=== PATIENT | female | born 1980 | race African-American/Black ===

== ENCOUNTER 2018-02-25 22:53 | Emergency (ER) | payer OTHER ==
[2018-02-25 23:22] LABS: HCG URINE NEGATIVE (NEGATIVE)
[2018-02-25 23:25] LABS: APPEARANCE HAZY (CLEAR); BILIRUBIN NEGATIVE (NEGATIVE); COLOR YELLOW (YELLOW); GLUCOSE NEGATIVE (NEGATIVE); KETONE NEGATIVE (NEGATIVE); NITRITE NEGATIVE (NEGATIVE); PROTEIN NEGATIVE (NEGATIVE); UROBILINOGEN NORMAL (NORMAL)
[2018-02-25 23:26] LABS: BACTERIA MODERATE /hpf (NONE SEEN); EPITHELIAL CELLS 0-5 /hpf (0-5); RED CELLS - URINE NONE SEEN /hpf (0-5)
[2018-02-25 23:33] LABS: UDS - AMPHET NEGATIVE QUAL (NEGATIVE); UDS - BARB NEGATIVE QUAL (NEGATIVE); UDS - BENZO NEGATIVE QUAL (NEGATIVE); UDS - COCAINE NEGATIVE QUAL (NEGATIVE); UDS - OPIATE NEGATIVE QUAL (NEGATIVE); UDS - PCP NEGATIVE QUAL (NEGATIVE); UDS - THC POSITIVE QUAL (NEGATIVE)
[2018-02-25 23:45] LABS: HEMATOCRIT 31.7 % (36.0-48.0); HEMOGLOBIN 10.3 g/dL (12-16); LYMPHOCYTES 29.3 % (15-50); MCH 27.7 pg (26.0-34.0); MCHC 32.5 g/dL (31.0-37.0); MCV 85.2 fL (80.0-100.0); MEAN PLATELET VOLUME 10.8 fL (7.4-10.4); NEUTROPHILS 58.9 % (40-80); PLATELET COUNT 245 10x3/uL (130-400); RBC 3.72 10x6/uL (4.00-5.40); RDW 13.1 % (11.5-14.5); WBC 10.7 10x3/uL (4.8-10.8)
[2018-02-26 00:14] LABS: ACETAMINOPHEN 5.8 ug/mL (10.0-30.0); ALBUMIN 3.3 g/dL (3.4-5.0); ANION GAP 11.7 mmol/L (8-16); BILIRUBIN - TOTAL 0.15 mg/dL (0.2-1.3); CALCIUM 8.3 mg/dL (8.5-10.1); CARBON DIOXIDE 28.8 mmol/L (21.0-32.0); CREATININE - SERUM 0.9 mg/dL (0.6-1.3); POTASSIUM - SERUM 3.5 mmol/L (3.5-5.1)
== END 2018-02-26 02:15 | disposition short-term general hospital (02) ==
LOC: D.ER 22:53
PROVIDERS: Family Medicine
DX: R45.851 Suicidal ideations (principal)

== ENCOUNTER 2018-07-14 19:08 | Emergency (ER) | payer OTHER ==
[~2018-07-14] VITALS: Ht 160 cm; Wt 85.9 kg
[2018-07-14 19:14] VITALS: Ht 160 cm; Wt 85.9 kg
[2018-07-14] MEDS ORDERED: DESERYL100 MG (19:15)
[2018-07-14] MEDS ORDERED: RISPERDAL0.25 MG (19:15)
[2018-07-14] MEDS ORDERED: ROBAXIN500 MG PO (20:53)
[2018-07-14] MEDS ORDERED: OCUFLOX 0.3 % OP5 ML LEFT EYE (20:53)
[2018-07-14 21:16] VITALS: BP 113/76
== END 2018-07-14 21:05 | disposition home or self-care (01) ==
LOC: D.ER 19:08
DX: H10.32 Unspecified acute conjunctivitis, left eye (principal); M54.5 Low back pain; G40.909 Epilepsy, unspecified, not intractable, without status epilepticus; K21.9 Gastro-esophageal reflux disease without esophagitis; Z86.59 Personal history of other mental and behavioral disorders; F17.200 Nicotine dependence, unspecified, uncomplicated